=== PATIENT | male | born 1990 | race African-American/Black ===

== ENCOUNTER 2025-02-07 16:46 | Emergency (ER) | payer MEDICAID ==
[~2025-02-07] VITALS: Ht 182.9 cm; Wt 84.0 kg
[~2025-02-07 16:46] MED LIST: ALBU90AE INH; ATROV INH; BUSP5TAB3 MT; PROT40 MT; [UNRECOGNIZED DRUG - CODE] IV
[2025-02-07 16:48] VITALS: O2SAT 97
[2025-02-07] MEDS: LORAZEPAM 1MG TABLET PO ONE ×2 (19:34→20:41)
[2025-02-07] MEDS ORDERED: LORA2TAB95 MT (21:26)
[2025-02-07] MEDS ORDERED: TRAZ-251 MT (21:26)
[2025-02-07] MEDS ORDERED: TRAZ-252 MT (21:41)
[2025-02-07 21:49] VITALS: BP 144/103; PULSE 94; RESP 16; TEMP 36.8; O2SAT 100
== END 2025-02-07 21:48 | disposition home or self-care (01) ==
LOC: ER 16:46
DX: F41.0 Panic disorder [episodic paroxysmal anxiety] (principal); J45.909 Unspecified asthma, uncomplicated; Z79.899 Other long term (current) drug therapy
CPT/HCPCS: 99283

== ENCOUNTER 2025-02-15 07:19 | Emergency (ER) | payer MEDICAID, OTHER ==
[~2025-02-15] VITALS: Ht 180.3 cm; Wt 90.0 kg
[~2025-02-15 07:19] MED LIST changes: +LORA2TAB95 MT; +TRAZ-252 MT
[2025-02-15 07:21] VITALS: BP 137/83; PULSE 97; RESP 16; TEMP 36.9; O2SAT 99
[2025-02-15] MEDS: QUETIAPINE FUMARATE 50MG TABLET PO SCH (08:04)
== END 2025-02-15 09:26 | disposition home or self-care (01) ==
LOC: ER 07:19
DX: F41.9 Anxiety disorder, unspecified (principal); J45.909 Unspecified asthma, uncomplicated; Z79.899 Other long term (current) drug therapy; F12.90 Cannabis use, unspecified, uncomplicated
CPT/HCPCS: 71045; 93005; 99283; Z7610

== ENCOUNTER 2025-04-12 07:07 | Emergency (ER) | payer OTHER ==
[~2025-04-12] VITALS: Ht 188 cm; Wt 88.0 kg
[2025-04-12 07:13] VITALS: O2SAT 100
[2025-04-12 09:13] LABS: BASOPHILS % 0.3 % (0.0-2.0); EOSINOPHILS % 0.0 % (0.0-5.0); HEMATOCRIT. 50.9 % (42.0-52.0); HEMOGLOBIN. 16.5 g/dL (14.0-18.0); LYMPHOCYTES % 13.0 % (20.0-50.0); MEAN PLATELET VOLUME 7.5 fl (7.4-10.4); MONOCYTES % 5.8 % (2.0-8.0); NEUTROPHILS % 80.9 % (40.0-76.0); PLATELET 319 x1000/uL (130-400); RED BLOOD CELL COUNT 6.13 mill/uL (4.7-6.1); RED CELL DISTRIBUTION WIDTH 14.2 % (11.6-14.6)
[2025-04-12 09:25] LABS: CREATININE 1.0 mg/dL (0.6-1.3); UREA NITROGEN BLOOD 10 mg/dL (9-23)
[2025-04-12 09:48] LABS: CLARITY URINE CLOUDY (CLEAR); COLOR URINE DARK YELLOW (YELLOW); GLUCOSE URINE NEGATIVE (NEGATIVE); KETONES URINE 1+ (NEGATIVE); LEUKOCYTE ESTERASE URINE 2+ (NEGATIVE); NITRITE URINE NEGATIVE (NEGATIVE); OCCULT BLOOD URINE NEGATIVE (NEGATIVE); PH URINE 7.5 (4.5-8.0); PROTEIN URINE 3+ (NEGATIVE); SPECIFIC GRAVITY URINE 1.037 (1.005-1.030); UROBILINOGEN URINE 1.0 E.U./dL (0.2-1.0)
[2025-04-12 10:01] LABS: BACTERIA URINE TRACE; SQUAMOUS EPITHELIAL CELL URINE 1+ /lpf (RARE/1+); WBC URINE TNTC /hpf (0-2); YEAST URINE NONE SEEN
[2025-04-12] MEDS ORDERED: DOXY-461 MT (10:23)
[2025-04-12] MEDS: CEFTRIAXONE SODIUM 500MG VIAL IM ONE (10:38)
[2025-04-12] MEDS: DOXYCYCLINE HYCLATE 100MG CAPSULE PO ONE (10:39)
[2025-04-12] MEDS: LIDOCAINE HCL 1% 20ML VIAL INFIL ONE (10:39)
[2025-04-12 10:44] VITALS: BP 140/87; PULSE 95; RESP 15; TEMP 36.8; O2SAT 100
[2025-04-13] MEDS ORDERED: ONDA4TAB50 MT (20:29)
[2025-04-15 05:13] LABS: CHLAMYDIA TRACHOMATIS NAA Negative (Negative); NEISSERIA GONORRHOEAE NAA Negative (Negative)
== END 2025-04-12 10:45 | disposition home or self-care (01) ==
LOC: ER 07:07
DX: N39.0 Urinary tract infection, site not specified (principal); F12.90 Cannabis use, unspecified, uncomplicated; F41.9 Anxiety disorder, unspecified; J45.909 Unspecified asthma, uncomplicated; Z79.899 Other long term (current) drug therapy
CPT/HCPCS: 99283; 86592; 87491; 87591; 80048; 81003; 85025; 87086; 87186; 87077; 36415; 96372; J0696; J2003

== ENCOUNTER 2025-04-13 17:46 | Emergency (ER) | payer OTHER ==
[~2025-04-13] VITALS: Ht 188 cm; Wt 88.0 kg
[~2025-04-13 17:46] MED LIST changes: +DOXY-461 MT
[2025-04-13 17:50] VITALS: O2SAT 99
[2025-04-13] MEDS ORDERED: ONDA4TAB50 MT (20:29)
[2025-04-13 20:38] VITALS: BP 149/84; PULSE 90; RESP 16; TEMP 37; O2SAT 99
== END 2025-04-13 20:39 | disposition home or self-care (01) ==
LOC: ER 17:46
DX: R11.0 Nausea (principal); F41.9 Anxiety disorder, unspecified; J45.909 Unspecified asthma, uncomplicated; Z79.899 Other long term (current) drug therapy
CPT/HCPCS: 99283

== ENCOUNTER 2025-05-02 19:42 | Emergency (ER) | payer OTHER ==
[~2025-05-02] VITALS: Ht 188 cm; Wt 76.0 kg
[~2025-05-02 19:42] MED LIST changes: +ONDA4TAB50 MT
[2025-05-02 19:51] VITALS: O2SAT 98
[2025-05-02 21:48] LABS: BASOPHILS % 0.4 % (0.0-2.0); EOSINOPHILS % 0.1 % (0.0-5.0); HEMATOCRIT. 50.6 % (42.0-52.0); HEMOGLOBIN. 16.1 g/dL (14.0-18.0); LYMPHOCYTES % 16.3 % (20.0-50.0); MEAN PLATELET VOLUME 7.6 fl (7.4-10.4); MONOCYTES % 6.4 % (2.0-8.0); NEUTROPHILS % 76.8 % (40.0-76.0); PLATELET 299 x1000/uL (130-400); RED BLOOD CELL COUNT 6.04 mill/uL (4.7-6.1); RED CELL DISTRIBUTION WIDTH 14.2 % (11.6-14.6)
[2025-05-02] MEDS: ACETAMINOPHEN 325MG TABLET PO ONE (21:51)
[2025-05-02] MEDS: ONDANSETRON 4MG ODT PO ONE (21:51)
[2025-05-02 22:00] LABS: CREATININE 0.9 mg/dL (0.6-1.3)
[2025-05-02 22:01] LABS: UREA NITROGEN BLOOD 10 mg/dL (9-23)
[2025-05-02 23:16] LABS: TROPONIN I HIGH SENSITIVITY 5 ng/L (3.0-53)
[2025-05-02] MEDS ORDERED: NAPR-1176 MT (23:38)
[2025-05-02 23:52] VITALS: BP 135/78; PULSE 86; RESP 17; TEMP 36.7; O2SAT 97
== END 2025-05-02 23:54 | disposition home or self-care (01) ==
LOC: ER 19:42
DX: R07.89 Other chest pain (principal); R11.2 Nausea with vomiting, unspecified; M79.602 Pain in left arm; F12.90 Cannabis use, unspecified, uncomplicated; J45.909 Unspecified asthma, uncomplicated; F41.9 Anxiety disorder, unspecified; Z79.899 Other long term (current) drug therapy; Z79.1 Long term (current) use of non-steroidal anti-inflammatories (NSAID)
CPT/HCPCS: 99285; 71045; 80048; 83690; 85025; 84484; 36415; 93005; Q0162